=== PATIENT | female | born 1965 | race Caucasian/White ===

== ENCOUNTER → 2019-01-04 | Outpatient (CLI) | payer BC ==
--- NOTE | 2019-01-23 08:16 | MM ---
Reason for exam: clinical finding. Last mammogram was performed 1 year and 10 months ago. History: Patient is postmenopausal. Physical Findings: Nurse did not find any significant physical abnormalities on exam. MG 3D Diag Mammo W/Cad LEANDRO Bilateral CC and MLO view(s) were taken. Prior study comparison: February 25, 2017, mammogram, performed at [place]. No significant new findings when compared with previous films. These results were verbally communicated with the patient on 01/20/19. ASSESSMENT: Benign, BI-RAD 2 RECOMMENDATION: Routine screening mammogram of both breasts in 1 year. Manage patient on a clinical basis.
== END | disposition home or self-care (01) ==
LOC: RADMAMWWP 12:51
PROVIDERS: ATTEND Family Medicine
DX: N64.4 Mastodynia (principal)
CPT/HCPCS: 77062; 77066

== ENCOUNTER 2019-04-28 14:09 | Emergency (ER) | payer BC ==
[2019-04-28 14:34] VITALS: RESP 18
[2019-04-28] MEDS ORDERED: ACETAMINOPHEN TAB 500 MG TAB PO STA ×2 (16:11→16:34)
--- NOTE | 2019-04-28 16:40 | CT ---
EXAMINATION TYPE: CT brain wo con DATE OF EXAM: 04/28/2019 COMPARISON: None HISTORY: Migraine headache with history of prior migraines CT DLP: 1099.[address] of the brain was performed. The ventricles, basal cisterns and sulci overlying the cerebral convexities demonstrate mild enlargem ent. There is no evidence for intracranial hemorrhage or sulcal effacement. There is decreased attenuation about the periventricular white matter and deep white matter of both c erebral hemispheres, compatible with chronic small vessel ischemia. Differential diagnosis does inclu de demyelination. No mass effects are seen.No midline shift. Osseous calvarium is intact. If symptoms persist consider MRI. IMPRESSION: 1. Age related atrophic and chronic small vessel ischemic change without acute intracranial process s een at this time.
[2019-04-28] MEDS ORDERED: KETOROLAC 30 MG/ML 1 ML VIAL IVP STA (16:46)
[2019-04-28] MEDS ORDERED: diphenhydrAMINE 50 MG/ML 1 ML VIAL IVP STA (16:46)
[2019-04-28] MEDS ORDERED: METOCLOPRAMIDE 5 MG/ML 2 ML VIAL IVP STA (16:46)
--- NOTE | 2019-04-28 16:55 | ED ---
General Adult HPI - General Chief complaint: Headache Stated complaint: Migraine Time Seen by Provider: 04/28/19 15:06 Source: patient Mode of arrival: ambulatory Limitations: no limitations - History of Present Illness Initial comments: Patient is a 53-year-old female with history of migraines presenting to the emergency department with chief complaint of a headache. Patient reports she has had an ongoing migraine for about 5 days on and off. Patient reports she takes preventative medication for the migraines. Patient reports currently the migraine is not currently. Patient does report nausea but no vomiting. She does report mild photosensitivity. Patient reports over last few days she's also been dropping objects when she is holding. Patient denies any blurry vision at this time. Patient denies any head trauma. Patient denies any one- sided weakness versus the other or paresthesias. - Related Data Allergies Allergy/AdvReac Type Severity Reaction Status Date / Time banana Allergy Itching Verified 04/28/19 14:38 grass pollen Allergy Itching Verified 04/28/19 14:38 green pepper Allergy Itching Verified 04/28/19 14:38 kiwi Allergy Itching Verified 04/28/19 14:38 melon Allergy Itching Verified 04/28/19 14:38 mold Allergy Itching Verified 04/28/19 14:38 onion Allergy Itching Verified 04/28/19 14:38 orange juice [[place]] Allergy Itching Verified 04/28/19 14:38 pear Allergy Itching Verified 04/28/19 14:38 pollen extracts Allergy Itching Verified 04/28/19 14:38 ragweed pollen Allergy Itching Verified 04/28/19 14:38 Sulfa (Sulfonamide Allergy Rash/Hives Verified 04/28/19 14:38 Antibiotics) Review of Systems ROS Statement: Those systems with pertinent positive or pertinent negative responses have been documented in the HPI. ROS Other: All systems not noted in ROS Statement are negative. Past Medical History Past Medical History: Thyroid Disorder Additional Past Medical History / Comment(s): Migraines, low potassium History of Any Multi-Drug Resistant Organisms: None Reported Past Surgical History: Adenoidectomy, Cholecystectomy, Hysterectomy, Tonsill ectomy Past Psychological History: No Psychological Hx Reported Smoking Status: Never smoker Past Alcohol Use History: Occasional Past Drug Use History: None Reported General Exam Limitations: no limitations General appearance: alert, in no apparent distress, obese Head exam: Present: atraumatic, normocephalic, normal inspection Eye exam: Present: normal appearance, PERRL, EOMI. Absent: scleral icterus, conjunctival injection Pupils: Present: normal accommodation ENT exam: Present: normal exam, normal oropharynx, mucous membranes moist, TM's normal bilaterally, normal external ear exam Neck exam: Present: normal inspection, tenderness (None midline cervical tenderness. Mild paraspinal cervical tenderness along the trapezius bilaterally.), full ROM Respiratory exam: Present: normal lung sounds bilaterally Cardiovascular Exam: Present: regular rate, normal rhythm, normal heart sounds GI/Abdominal exam: Present: soft. Absent: tenderness Extremities exam: Present: normal inspection, full ROM, normal capillary refill, other (+2%the posterior tibialis bilaterally. +2 ulnar and radial pulses bilaterally.) Back exam: Present: normal inspection, full ROM. Absent: CVA tenderness (R), CVA tenderness (L) Neurological exam: Present: alert, oriented X3, CN II-XII intact, normal gait, reflexes normal, other (Patient neurovascularly intact.) Psychiatric exam: Present: normal affect, normal mood Skin exam: Present: warm, intact, normal color Course Vital Signs 04/28/19 04/28/19 14:28 17:48 Temperature 98.7 F 98.0 F Pulse Rate 87 78 Respiratory 18 18 Rate Blood Pressure 111/71 115/74 O2 Sat by Pulse 97 98 Oximetry Medical Decision Making - Medical Decision Making Patient is a 53-year-old female with history of migraines is presenting to the emergency department with a chief complaint of a migraine. The muscular migraine has been going on for about 5 days with a classical symptoms of photosensitivity and nausea. However, considering the patient has been dropping objects over the last several days, CT of the brain is warranted. CT is negative intracranial pathologies. Patient reports she is scheduled to have an MRI. Patient neurovascularly intact. Neuro exam negative. Patient given Tylenol prior to imaging. After the imaging was performed, the patient was given Toradol, Reglan and Benadryl. On reevaluation patient reports improved in her symptoms. Patient did also complain of some cervical tenderness although this appears to be only in the paraspinal regions along the trapezius which appears to be only musculoskeletal in nature. I suspect the patient to have a typical migraine. Patient advised to follow-up with neurology for further management. Strict return parameters were thoroughly discussed with patient was understanding and agreeable. Case discussed physician. Disposition Clinical Impression: Migraine headache without aura Disposition: HOME SELF-CARE Condition: Stable Instructions (If sedation given, give patient instructions): Acute Headache (ED) Additional Instructions: Please follow up with a neurologist. Please return to emergency department if symptoms worsen. Please drink lots of fluids. Is patient prescribed a controlled substance at d/c from ED?: No Referrals: Rebecca Martines DO [Primary Care Provider] - 1-2 days Tunde Christine MD [STAFF PHYSICIAN] - 1-2 days Time of Disposition: 17:27
[2019-04-28 17:48] VITALS: BP 115/74; PULSE 78; TEMP 98
== END 2019-04-28 17:48 | disposition home or self-care (01) ==
LOC: EC 14:09
DX: G43.009 Migraine without aura, not intractable, without status migrainosus (principal); Z88.2 Allergy status to sulfonamides; Z91.018 Allergy to other foods; Z91.048 Other nonmedicinal substance allergy status
CPT/HCPCS: 70450; 99284; 96374; 96375 ×2; J1200; J2765; J1885

== ENCOUNTER → 2019-05-12 | Outpatient (CLI) | payer BC ==
--- NOTE | 2019-05-12 09:47 | MR ---
EXAMINATION TYPE: MR cervical spine wo con DATE OF EXAM: 05/12/2019 COMPARISON: None HISTORY: Radiculopathy, cervical region, neck pain, BARRERA TECHNIQUE: Multiplanar, multisequence images of the cervical spine were acquired. C2-C3: There is left-sided facet arthropathy with mild left foraminal encroachment. C3-C4: Degenerative disc disease with uncovertebral joint hypertrophy on the right right-sided facet arthropathy result in moderate right foraminal encroachment. There is a right paracentral lateral dis c protrusion. C4-C5: Degenerative disc disease with posterior spondylosis. Bilateral facet arthropathy greater on t he left with uncovertebral joint hypertrophy. Mild left foraminal encroachment. C5-C6: Posterior spondylosis with mild impression of thecal sac but no canal stenosis. Bilateral unco vertebral joint hypertrophy greater on the right with mild right-sided foraminal encroachment. C6-C7: Degenerative disc disease with broad-based central disc bulging capped by spur. Uncovertebral joint hypertrophy is noted greater on the left with mild left foraminal encroachment. C7-T1: No evidence for degenerative disc disease. No disc bulge/herniation or protrusion. No Canal stenosis. Foramina are patent bilaterally. Cervical segments are intact. There is normal alignment. Cervical spinal cord is of normal signal. Craniovertebral junction relationships are within normal limits. Subcentimeter left thyroid nodule incidentally. The upper thoracic spine there is a sagittal disc bulge approximate level of T2-T3. IMPRESSION: 1. Multilevel moderate degenerative disc disease with multilevel facet arthropathy. Findings most mar ked at C5-6 and C6-C7. Findings result in mild to moderate foraminal encroachment as discussed above with no discrete herniation or canal stenosis. 2. Mild broad-based central disc bulging C6-C7 with hypertrophic changes resulting in mild left elijah inal encroachment. 3. Right paracentral and lateral disc protrusion C3-C4 with moderate right-sided foraminal encroachme nt.
== END | disposition home or self-care (01) ==
LOC: RADMRIMAIN 08:49
PROVIDERS: ATTEND Family Medicine
DX: M50.21 Other cervical disc displacement, high cervical region (principal); M50.823 Other cervical disc disorders at C6-C7 level; M50.322 Other cervical disc degeneration at C5-C6 level; M46.92 Unspecified inflammatory spondylopathy, cervical region
CPT/HCPCS: 72141

== ENCOUNTER 2021-01-23 01:42 | Observation (INO) | payer BC ==
--- NOTE | 2021-01-23 02:10 | ED ---
Chest Pain HPI - General Chief Complaint: Chest Pain Stated Complaint: Chest pain Time Seen by Provider: 01/23/21 02:03 Source: patient, family, RN notes reviewed, old records reviewed Mode of arrival: wheelchair Limitations: no limitations - History of Present Illness Initial Comments: This is a 55-year-old female to the ER for evaluation today. Patient presents today with anterior chest wall pain to her back across her chest. No history of heart disease, no history of high blood pressure but patient does have diabetes. No recent fevers cough or congestion. Patient does have recent travel history she's been traveling in a car extensively recently. She did have some left calf pain as well as morning. Patient is currently complaining of persistent chest pain here in the ER. MD Complaint: chest pain -: hour(s) Onset: during rest Pain Location: substernal, left chest, right chest Pain Radiation: back Severity: moderate Severity scale (1-10): 4 Quality: tightness Consistency: constant Improves With: nothing Worsens With: nothing Other Symptoms: cough Treatments Prior to Arrival: none - Related Data Allergies Allergy/AdvReac Type Severity Reaction Status Date / Time banana Allergy Itching Verified 01/23/21 01:50 grass pollen Allergy Itching Verified 01/23/21 01:50 green pepper Allergy Itching Verified 01/23/21 01:50 kiwi Allergy Itching Verified 01/23/21 01:50 melon Allergy Itching Verified 01/23/21 01:50 mold Allergy Itching Verified 01/23/21 01:50 onion Allergy Itching Verified 01/23/21 01:50 orange juice [[place]] Allergy Itching Verified 01/23/21 01:50 pear Allergy Itching Verified 01/23/21 01:50 pollen extracts Allergy Itching Verified 01/23/21 01:50 ragweed pollen Allergy Itching Verified 01/23/21 01:50 Sulfa (Sulfonamide Allergy Rash/Hives Verified 01/23/21 01:50 Antibiotics) Review of Systems ROS Statement: Those systems with pertinent positive or pertinent negative responses have been documented in the HPI. ROS Other: All systems not noted in ROS Statement are negative. EKG Findings - EKG Comments: EKG Findings:: EKG shows sinus rhythm 79 [place] 134 QRS 90 QTc 421 Past Medical History Past Medical History: Diabetes Mellitus, Thyroid Disorder Additional Past Medical History / Comment(s): Migraines, low potassium History of Any Multi-Drug Resistant Organisms: None Reported Past Surgical History: Adenoidectomy, Cholecystectomy, Hysterectomy, Tonsillectomy Past Psychological History: No Psychological Hx Reported Smoking Status: Current every day smoker Past Alcohol Use History: Occasional Past Drug Use History: None Reported General Exam Limitations: no limitations General appearance: alert, in no apparent distress, anxious Head exam: Present: atraumatic, normocephalic, normal inspection Eye exam: Present: normal appearance, PERRL, EOMI. Absent: scleral icterus, conjunctival injection, periorbital swelling ENT exam: Present: normal exam, mucous membranes moist Neck exam: Present: normal inspection. Absent: tenderness, meningismus, lymphadenopathy Respiratory exam: Present: normal lung sounds bilaterally. Absent: respiratory distress, wheezes, rales, rhonchi, stridor Cardiovascular Exam: Present: regular rate, normal rhythm, normal heart sounds. Absent: systolic murmur, diastolic murmur, rubs, gallop, clicks GI/Abdominal exam: Present: soft, normal bowel sounds. Absent: distended, tenderness, guarding, rebound, rigid Extremities exam: Present: normal inspection, full ROM, normal capillary refill. Absent: tenderness, pedal edema, joint swelling, calf tenderness Back exam: Present: normal inspection Neurological exam: Present: alert, oriented X3, CN II-XII intact Psychiatric exam: Present: normal affect, normal mood Skin exam: Present: warm, dry, intact, normal color. Absent: rash Course Vital Signs 01/23/21 01:47 Temperature 98.8 F Pulse Rate 85 Respiratory 18 Rate Blood Pressure 119/82 O2 Sat by Pulse 97 Oximetry - Reevaluation(s) Reevaluation #1: 01/23/21 04:39 Medical record is reviewed Reevaluation #2: 01/23/21 04:39 Patient has persistent chest pain here in the ER Reevaluation #3: 01/23/21 04:39 Patient informed results and questions answered Reevaluation #4: 01/23/21 04:[address] chest is negative for PE - Consultations Consultation #1: Spoke with Dr. Martines will admit this patient Chest Pain MDM - MDM 89 female presenting with chest pain. History of diabetes, patient be admitted for cardiac observation Disposition Clinical Impression: Chest pain Disposition: ADMITTED IP TO THIS HOSP Condition: Undetermined Instructions (If sedation given, give patient instructions): Chest Pain (ED) Is patient prescribed a controlled substance at d/c from ED?: No Referrals: Rebecca Martines DO [Primary Care Provider] - 1-2 days
[2021-01-23] MEDS ORDERED: MORPHINE SULFATE 4 MG/ML SYRINGE IVP PRN (02:13)
[2021-01-23] MEDS ORDERED: MORPHINE SULFATE 4 MG/ML SYRINGE IVP STA (02:13)
[2021-01-23 02:32] LABS: Basophils % (A) 0 %; Eosinophils % (A) 0 %; HCT 40.4 % (34.0-46.0); HGB 13.8 gm/dL (11.4-16.0); Lymphocytes # (A) 1.7 k/uL (1.0-4.8); Lymphocytes % (A) 28 %; MCH 30.2 pg (25.0-35.0); MCHC 34.1 g/dL (31.0-37.0); MCV 88.6 fL (80.0-100.0); Mean Platelet Volume 7.9; Monocytes # (A) 0.4 k/uL (0-1.0); Monocytes % (A) 6 %; Neutrophils % (A) 64 %; Platelet Count 172 k/uL (150-450); RBC 4.56 m/uL (3.80-5.40); RDW 13.4 % (11.5-15.5); WBC 6.2 k/uL (3.8-10.6)
[2021-01-23 02:41] LABS: INR 0.9 (<1.2); Partial Thromboplastin Time 24.4 sec (22.0-30.0); Prothrombin Time 9.9 sec (9.0-12.0)
[2021-01-23 02:48] LABS: Calcium 9.8 mg/dL (8.4-10.2)
[2021-01-23 02:59] LABS: Albumin 4.6 g/dL (3.5-5.0); Potassium 3.9 mmol/L (3.5-5.1); Total Bilirubin 0.6 mg/dL (0.2-1.3); Total Protein 7.3 g/dL (6.3-8.2)
--- NOTE | 2021-01-23 03:33 | CT ---
EXAMINATION TYPE: CT angio chest DATE OF EXAM: 01/23/2021 COMPARISON: None HISTORY: Chest pain CT DLP: 525.4 mGycm Automated exposure control for dose reduction was used. CONTRAST: Performed with IV Contrast, patient injected with 80 mL of Isovue 370. Images obtained from the thoracic inlet to the diaphragm with IV contrast. There are 3-D post process ed images. The lungs are clear of infiltrate. There is no pleural effusion. There is no pneumothorax. There is no mediastinal adenopathy. There are no hilar masses. Heart size is normal. Thoracic aorta is intact. There is no aneurysm or dissection. The ascending aorta measures 3.5 cm. There is normal contrast opacification of the pulmonary arteries. There are no filling defects. Thoracic spine is intact. There is no compression fracture. Sternum is intact. There is 2.5 cm cortic al cyst upper pole left kidney. IMPRESSION: Negative exam. No evidence of pulmonary embolism. No suspicious pulmonary mass.
[2021-01-23] MEDS ORDERED: MORPHINE SULFATE 4 MG/ML SYRINGE IV STA (04:35)
[2021-01-23] MEDS ORDERED: NITROGLYCERIN SL TABS 0.4 MG TAB SUBLINGUAL PRN (04:35)
[2021-01-23] MEDS ORDERED: ASPIRIN 81 MG PO STA (04:35)
[2021-01-23] MEDS ORDERED: SODIUM CHLORIDE 0.9% 1,000 ML IV SCH (04:45)
[2021-01-23 05:05] VITALS: RESP 16
[2021-01-23 07:37] LABS: Glucose,Whole Blood 125 mg/dL (75-99)
[2021-01-23] MEDS ORDERED: DOBUTamine DRIP for NUC MED 500 MG in DEXTROSE/WATER 1 250ML.BAG IV PRN (08:30)
--- NOTE | 2021-01-23 09:16 | P.CRDCN ---
History of Present Illness History of present illness: HISTORY OF PRESENTING ILLNESS This is a pleasant 55-year-old female past medical history significant for diabetes mellitus, hypothyroidism, chronic migraines and chronic nicotine. 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 We have been asked to see in consultation for chest pain. She states yesterday morning she woke up with a migraine headache. She had to lay down and slept most of the day. She woke up around 3pm and noticed a tight pressure in her chest in the upper mid sternal region. The pain was constant and wrapped around her torso. It was associated with shortness of breath and nausea. The pain persisted all day and into the night. There was no specific exacerbating factor. Nothing made the pain better or worse. It is still ongoing currently. No radiation down the arm or into the neck/jaw. DIAGNOSTICS EKG reveals sinus mechanism [address] or T wave abnormalities noted. CTA negative for pulmonary embolism, lungs are clear with no evidence of aortic aneurysm or dissection. Laboratory reviewed, CBC unremarkable, d-dimer 0.26, sodium 137, potassium 3.9, creatinine 0.85, magnesium 2.0, cardiac enzymes negative 2, NT proBNP 39. Current cardiac medications include hydrochlorothiazide 25 mg daily. Although not listed on her medication list the patient states she does take a statin 2 days per week. REVIEW OF SYSTEMS At the time of my exam: CONSTITUTIONAL: Denies fever or chills. CARDIOVASCULAR: Denies chest pain, shortness of breath, orthopnea, PND or palpitations. RESPIRATORY: Denies cough. GASTROINTESTINAL: Denies abdominal pain, diarrhea, constipation, nausea or vomit ing. MUSCULOSKELETAL: Denies myalgias. NEUROLOGIC: Denies numbness, tingling, headacbe or weakness. ENDOCRINE: Denies fatigue, weight change, polydipsia or polyurina. GENITOURINARY: Denies burning, hematuria or urgency with micturation. HEMATOLOGIC: Denies history of anemia or bleeding. PHYSICAL EXAMINATION Blood pressure 116/76 heart rate 71 afebrile and maintaining oxygen saturation on room air. CONSTITUTIONAL: No apparent distress. HEENT: Head is normocephalic. Pupils are equal, round. Sclerae anicteric. Mucous membranes of the mouth are moist. No JVD. No carotid bruit. CHEST EXAMINATION: Lungs are clear to auscultation. No chest wall tenderness is noted on palpation or with deep breathing. HEART EXAMINATION: Regular rate and rhythm. S1, S2 heard. No murmurs, gallops or rub. ABDOMEN: Soft, nontender. Positive bowel sounds. EXTREMITIES: 2+ peripheral pulses, no lower extremity edema and no calf tenderness. NEUROLOGIC EXAMINATION: Patient is awake, alert and oriented x3. ASSESSMENT Chest pain Diabetes mellitus Chronic migraines Chronic nicotine dependence Obesity, BMI 37 PLAN An acute coronary event has been ruled out. Pain is atypical for angina with no evidence of EKG abnormalities despite having ongoing constant chest pain since 3 PM yesterday. Obtain 2-D echocardiogram and Doppler study to assess cardiac structure and function. Perform dobutamine stress echocardiogram to assess for stress-induced cardiac ischemia. Discussed with her the importance of statin therapy given her history of diabetes mellitus. Thank you kindly for this consultation. Nurse Practitioner note has been reviewed, I agree with a documented findings and plan of care. Patient was seen and examined. Past Medical History Past Medical History: Diabetes Mellitus, Thyroid Disorder Additional Past Medical History / Comment(s): Migraines, low potassium History of Any Multi-Drug Resistant Organisms: None Reported Past Surgical History: Adenoidectomy, Cholecystectomy, Hysterectomy, Tonsillectomy Past Psychological History: No Psychological Hx Reported Smoking Status: Current every day smoker Past Alcohol Use History: Occasional Past Drug Use History: None Reported Medications and Allergies Home Medications Medication Instructions Recorded Confirmed Type Amitriptyline HCl 25 mg PO HS 01/23/21 01/23/21 History Azelastine HCl [Astepro] 1 - 2 spray EA NOSTRIL BID PRN 01/23/21 01/23/21 History Fluticasone Propionate [Flonase 1 - 2 spray EA NOSTRIL BID PRN 01/23/21 01/23/21 History Allergy Relief] Galcanezumab-Gnlm [Emgality] 120 mg SQ QMONTHLY 01/23/21 01/23/21 History Levothyroxine Sodium [Synthroid] 112 mcg PO DAILY 01/23/21 01/23/21 History Omeprazole [PriLOSEC] 20 mg PO DAILY 01/23/21 01/23/21 History Potassium Chloride [Klor-Con 10] 20 meq PO BID 01/23/21 01/23/21 History QUEtiapine [SEROquel] 25 mg PO HS 01/23/21 01/23/21 History Rizatriptan Benzoate [Rizatriptan] 10 mg PO BID PRN 01/23/21 01/23/21 History Ubrogepant [Ubrelvy] 50 mg PO Q2H PRN 01/23/21 01/23/21 History Venlafaxine HCl [Effexor] 75 mg PO BID 01/23/21 01/23/21 History hydroCHLOROthiazide [Hydrodiuril] 25 mg PO DAILY 01/23/21 01/23/21 History metFORMIN HCL [Glucophage] 500 mg PO AC-BID 01/23/21 01/23/21 History Allergies Allergy/AdvReac Type Severity Reaction Status Date / Time banana Allergy Itching Verified 01/23/21 06:30 grass pollen Allergy Itching Verified 01/23/21 06:30 green pepper Allergy Itching Verified 01/23/21 06:30 kiwi Allergy Itching Verified 01/23/21 06:30 melon Allergy Itching Verified 01/23/21 06:30 mold Allergy Itching Verified 01/23/21 06:30 onion Allergy Itching Verified 01/23/21 06:30 orange juice [[place]] Allergy Itching Verified 01/23/21 06:30 pear Allergy Itching Verified 01/23/21 06:30 pollen extracts Allergy Itching Verified 01/23/21 06:30 ragweed pollen Allergy Itching Verified 01/23/21 06:30 Sulfa (Sulfonamide Allergy Rash/Hives Verified 01/23/21 06:30 Antibiotics) Physical Exam Vitals: Vital Signs Temp Pulse Resp BP Pulse Ox 01/23/21 05:04 66 16 97/60 97 01/23/21 01:47 98.8 F 85 18 119/82 97 Intake and Output 01/22/21 01/23/21 01/23/21 22:59 06:59 14:59 Other: Weight 104.78 kg Results 01/23/21 02:11 01/23/21 02:11 Cardiac Enzymes 01/23/21 01/23/21 01/23/21 Range/Units 02:11 02:11 05:43 AST 43 H (14-36) U/L Troponin I <0.012 <0.012 (0.000-0.034) ng/mL Coagulation 01/23/21 Range/Units 02:11 PT 9.9 (9.0-12.0) sec APTT 24.4 (22.0-30.0) sec CBC 01/23/21 Range/Units 02:11 WBC 6.2 (3.8-10.6) k/uL RBC 4.56 (3.80-5.40) m/uL Hgb 13.8 (11.4-16.0) gm/dL Hct 40.4 (34.0-46.0) % Plt Count 172 (150-450) k/uL Comprehensive Metabolic Panel 01/23/21 Range/Units 02:11 Sodium 137 (137-145) mmol/L Potassium 3.9 (3.5-5.1) mmol/L Chloride 99 (98-107) mmol/L Carbon Dioxide 30 (22-30) mmol/L BUN 26 H (7-17) mg/dL Creatinine 0.85 (0.52-1.04) mg/dL Glucose 112 H (74-99) mg/dL Calcium 9.8 (8.4-10.2) mg/dL AST 43 H (14-36) U/L ALT 29 (4-34) U/L Alkaline Phosphatase 93 (38-126) U/L Total Protein 7.3 (6.3-8.2) g/dL Albumin 4.6 (3.5-5.0) g/dL Current Medications Generic Name Dose Route Start Last Admin Trade Name Freq PRN Reason Stop Dose Admin Aspirin 325 mg 01/24/21 09:00 Aspirin 325 Mg Tab PO DAILY RAMONA Sodium Chloride 1,000 mls @ 20 mls/hr 01/23/21 04:45 01/23/21 05:01 Saline 0.9% IV 20 mls/hr .Q24H RAMONA Administration Morphine Sulfate 4 mg 01/23/21 02:13 Morphine Sulfate 4 Mg/Ml Syringe IVP Q4HR PRN Pain Nitroglycerin 0.4 mg 01/23/21 04:35 Nitroglycerin Sl Tabs 0.4 Mg Tab SUBLINGUAL Q5M PRN Chest Pain Intake and Output 01/22/21 01/23/21 01/23/21 22:59 06:59 14:59 Other: Weight 104.78 kg 01/23/21 02:11 01/23/21 02:11
[2021-01-23] MEDS ORDERED: ATROPINE SULFATE 0.1 MG/ML 10ML SYRINGE ONE (10:53)
--- NOTE | 2021-01-23 11:40 | ECHOF ---
Referral Reason: MEASUREMENTS -------- HEIGHT: 167.6 cm WEIGHT: 104.8 kg BP: 97/60 RVIDd: 3.0 cm (< 3.3) IVSd: 1.1 cm (0.6 - 1.1) LVIDd: 3.9 cm (3.9 - 5.3) LVPWd: 0.9 cm (0.6 - 1.1) IVSs: 1.3 cm LVIDs: 2.9 cm LVPWs: 1.5 cm LA Diam: 3.2 cm (2.7 - 3.8) LAESV Index (A-L): 14.24 ml/m Ao Diam: 3.3 cm (2.0 - 3.7) AV Cusp: 2.0 cm (1.5 - 2.6) MV EXCURSION: 15.618 mm (> 18.000) MV EF SLOPE: 78 mm/s (70 - 150) EPSS: 0.3 cm MV E Brent: 0.88 m/s MV DecT: 286 ms MV A Brent: 0.96 m/s MV E/A Ratio: 0.92 RAP: 5.00 mmHg RVSP: 25.57 mmHg FINDINGS -------- Sinus rhythm. This was a technically adequate study. The left ventricular size is normal. Left ventricular wall thickness is normal. Overall left vent ricular systolic function is normal with, an EF between 60 - 65 %. The right ventricle is normal in size. Normal LA size by volume 22+/-6 ml/m2. The right atrium is normal in size. Aneurysmal Interatrial septum. The aortic valve is trileaflet, and appears structurally normal. No aortic stenosis or regurgitation. The mitral valve is normal. Mild tricuspid regurgitation present. Right ventricular systolic pressure is normal at < 35 mmHg. There is no pulmonic regurgitation present. The aortic root is dilated measuring 3.3cm. Normal inferior vena cava with normal inspiratory collapse consistent with estimated right atrial pre ssure of 5 mmHg. There is no pericardial effusion. CONCLUSIONS -------- 1. The left ventricular size is normal. 2. Left ventricular wall thickness is normal. 3. Overall left ventricular systolic function is normal with, an EF between 60 - 65 %. 4. Aneurysmal Interatrial septum. 5. The aortic valve is trileaflet, and appears structurally normal. No aortic stenosis or regurgitati on. 6. Mild tricuspid regurgitation present. 7. There is no pericardial effusion. BLOCK OPERATOR: Annamaria Sanchez RDCS
[2021-01-23 11:49] LABS: Glucose,Whole Blood 108 mg/dL (75-99)
[2021-01-23 13:10] LABS: Chol/HDL Ratio 2.62
--- NOTE | 2021-01-23 14:27 | ECHOS ---
STRESS ECHOCARDIOGRAM LUMASON: Vial INDICATIONS: Chest pain. MEDICATIONS: BASELINE HEART RATE: 66 BASELINE BLOOD PRESSURE: 154/67 MAXIMUM HEART RATE: 143 MAXIMUM BLOOD PRESSURE: 216/115 85% MPHR: 139 100% MPHR: 163 METS: na MAXIMUM STAGE REACHED: na TOTAL EXERCISE TIME: 14:02 CLINICAL INFORMATION: Baseline EKG shows sinus rhythm, normal axis, normal intervals. Patient was given intravenous dobutamine over a period of 14 minutes as per protocol. She also received 0.5 mg of atropine achieving 85% of predicted maximal heart rate. The patient did not have chest pain or diagnostic ST-segment depression. Baseline echo shows normal left ventricular size, wall motion and systolic function. Post dobutamine infusion there is normal hyperdynamic response of all segments of myocardium noted. CONCLUSIONS: 1. Negative stress test by EKG criteria. 2. Negative dobutamine stress echo. OLIVE / LIYAHN: [id number] /
[2021-01-23 15:10] VITALS: BP 105/71; PULSE 79; TEMP 97.7
[2021-01-23 17:39] LABS: Glucose,Whole Blood 107 mg/dL (75-99)
[2021-01-23] MEDS ORDERED: QUEtiapine 25 MG TAB PO SCH (21:00)
[2021-01-23] MEDS ORDERED: AMITRIPTYLINE HCL 25 MG TAB PO SCH (21:00)
[2021-01-23] MEDS ORDERED: VENLAFAXINE HCL 75 MG TAB PO SCH (21:00)
[2021-01-23] MEDS ORDERED: POTASSIUM CHLORIDE ER 20 MEQ TAB.ER PO SCH (21:00)
[2021-01-24] MEDS ORDERED: LEVOTHYROXINE 112 MCG TAB PO SCH (06:30)
[2021-01-24] MEDS ORDERED: PANTOPRAZOLE 40 MG TABLET PO SCH (07:30)
[2021-01-24] MEDS ORDERED: ASPIRIN 325 MG TAB PO SCH (09:00)
[2021-01-24] MEDS ORDERED: hydroCHLOROthiazide 25 MG TAB PO SCH (09:00)
== END 2021-01-23 19:09 | disposition home or self-care (01) ==
LOC: EC 01:42 → 6NMEDSUR 04:35
PROVIDERS: ADMIT Family Medicine; ATTEND Family Medicine
DX: R07.89 Other chest pain (principal); M79.662 Pain in left lower leg; R05 Cough; E11.9 Type 2 diabetes mellitus without complications; G43.909 Migraine, unspecified, not intractable, without status migrainosus; F17.200 Nicotine dependence, unspecified, uncomplicated; E03.9 Hypothyroidism, unspecified; R06.02 Shortness of breath; R11.0 Nausea; E66.9 Obesity, unspecified; Z68.37 Body mass index [BMI] 37.0-37.9, adult; Z79.890 Hormone replacement therapy; Z79.84 Long term (current) use of oral hypoglycemic drugs; Z79.899 Other long term (current) drug therapy; Z88.2 Allergy status to sulfonamides; Z91.018 Allergy to other foods; Z91.048 Other nonmedicinal substance allergy status; Z90.49 Acquired absence of other specified parts of digestive tract; Z90.710 Acquired absence of both cervix and uterus; Z98.890 Other specified postprocedural states
CPT/HCPCS: 99285; 96376 ×2; 96374; 36415; 93005; 93306; 93351; 85379; 83880; 80061; 80053; 82550; 83690; 83735; 84484; 85025; 85610; 85730; 71275; G0378; J1250; J2270; J0461

== ENCOUNTER 2021-03-12 07:37 | Day surgery (SDC) | payer BC ==
[2021-03-07 15:20] VITALS: BMI 35.2
[~2021-03-12 07:37] MED LIST: LACTATED RINGERS 1,000 ML IV SCH; LIDOCAINE 1% (10MG/ML) FOR IV START INTRADERMA PRN
[2021-03-12 08:05] VITALS: RESP 16; TEMP 97.7
[2021-03-12] MEDS ORDERED: LIDOCAINE 1% (10MG/ML) FOR IV START INTRADERMA ONE (08:11)
[2021-03-12 08:13] LABS: Glucose,Whole Blood 107 mg/dL (75-99)
[2021-03-12] MEDS ORDERED: LIDOCAINE 1% INJ 10MG/ML (20 ML MDV) ONE (08:29)
[2021-03-12] MEDS ORDERED: PROPOFOL 10 MG/ML 20 ML VIAL IV ONE (08:29)
--- NOTE | 2021-03-12 08:39 | P.PCN ---
Date of Procedure: 03/12/21 Procedure(s) Performed: BRIEF HISTORY: Patient is a 55-year-old, pleasant, white female scheduled for an upper endoscopy as a part of evaluation of long-standing history of GERD and atypical chest pain for the last 1 month duration.. PROCEDURE PERFORMED: Esophagogastroduodenoscopy with biopsy. PREOPERATIVE DIAGNOSIS: Long-standing history of GERD and atypical chest pain. IV sedation per anesthesia. PROCEDURE: After informed consent was obtained, the patient was brought into the endoscopy unit. IV sedation was administered by Anesthesia under continuous monitoring. Initially the Olympus GIF-140 video endoscope was inserted into the mouth. Esophagus intubated without any difficulty. It was gradually advanced into the stomach and duodenum and carefully examined. The bulb and the second part of the duodenum appeared normal. The scope at this time was withdrawn to the stomach, adequately insufflated with air, and upon careful examination, mucosa of the antrum appeared normal. In the proximal antrum along the greater curvature of the stomach there was a 1 cm clean-based antral ulcer with surrounding mucosal erythema friability and multiple biopsies were done from the margin of the ulcer. Cause of the, body, cardia and the fundus appeared normal. The scope was then withdrawn into the esophagus. The GE junction was located at 39 cm from the incisors. Small sliding type hiatal hernia noted. The esophagus appeared normal. There were no erosions or ulcerations seen and the patient t olerated the procedure well. IMPRESSION: 1. 1 cm clean-based antral ulcer with surrounding friability and erythema of the gastric mucosa.. 2. Small hiatal hernia.. RECOMMENDATIONS: The findings of this examination were discussed with the patient as well as a family. She was advised to increase omeprazole to 20 mg twice daily, and follow with the biopsy results. Avoid NSAIDs. She'll be seen in office in 3 months. Plan a repeat upper endoscopy in 3 months..
[2021-03-12 09:07] VITALS: BP 101/68; PULSE 84
== END 2021-03-12 09:56 | disposition home or self-care (01) ==
LOC: ORWHC2ENDO 07:37
PROVIDERS: ATTEND Internal Medicine Gastroenterology
DX: K29.60 Other gastritis without bleeding (principal); K21.9 Gastro-esophageal reflux disease without esophagitis; K44.9 Diaphragmatic hernia without obstruction or gangrene; K25.9 Gastric ulcer, unspecified as acute or chronic, without hemorrhage or perforation; R13.10 Dysphagia, unspecified; E11.9 Type 2 diabetes mellitus without complications; G43.909 Migraine, unspecified, not intractable, without status migrainosus; E07.9 Disorder of thyroid, unspecified; Z79.84 Long term (current) use of oral hypoglycemic drugs; Z79.890 Hormone replacement therapy; Z79.899 Other long term (current) drug therapy; Z90.710 Acquired absence of both cervix and uterus; Q21.1 Atrial septal defect
CPT/HCPCS: 43239; 88305; J2001; J2704

== ENCOUNTER 2021-05-15 06:18 | Day surgery (SDC) | payer BC ==
[2021-05-14 12:35] VITALS: BMI 34.7
[2021-05-15 06:59] VITALS: TEMP 97.2
[2021-05-15 07:03] LABS: Glucose,Whole Blood 104 mg/dL (75-99)
[2021-05-15] MEDS ORDERED: PROPOFOL 10 MG/ML 20 ML VIAL IV ONE (07:06)
[2021-05-15 07:56] VITALS: BP 102/74; PULSE 66; RESP 14
--- NOTE | 2021-05-15 08:40 | PCN ---
PROCEDURE NOTE DATE OF PROCEDURE: 05/15/2021. PREOP DIAGNOSIS: Multiple myeloma. POSTOP DIAGNOSIS: Multiple myeloma. ANESTHESIA: Local with IV systemic sedation. DETAILS: Utilizing sterile technique, the skin overlying the right iliac crest was prepared with Betadine and alcohol. After adequate sterile draping, systemic sedation and 1% local anesthesia with lidocaine size 11 4 inch Jamshidi needle was utilized to access the periosteum with ease. A total of 15 mL of aspirate and 6 mm bone core biopsies were obtained. The patient tolerated the procedure very well. There was no immediate procedure related complications. TOTAL BLOOD LOSS: Less than 1 mL. Results pending. MMODL / IJN: [id number] /
[2021-05-15 11:37] LABS: Basophils % (A) 0 %; Eosinophils % (A) 0 %; HCT 40.5 % (34.0-46.0); HGB 13.8 gm/dL (11.4-16.0); Lymphocytes # (A) 1.9 k/uL (1.0-4.8); Lymphocytes % (A) 31 %; MCH 30.5 pg (25.0-35.0); MCV 89.8 fL (80.0-100.0); Monocytes # (A) 0.4 k/uL (0-1.0); Monocytes % (A) 7 %; Neutrophils # (A) 3.6 k/uL (1.3-7.7); Neutrophils % (A) 60 %; Platelet Count 213 k/uL (150-450); RBC 4.51 m/uL (3.80-5.40); RDW 13.5 % (11.5-15.5); WBC 5.9 k/uL (3.8-10.6)
[2021-05-15 11:40] LABS: Reticulocyte % 1.2 % (0.5-2.0)
== END 2021-05-15 08:22 | disposition home or self-care (01) ==
LOC: OR 06:18
PROVIDERS: ATTEND Internal Medicine Hematology & Oncology
DX: C90.00 Multiple myeloma not having achieved remission (principal)
CPT/HCPCS: 38222; 85025; 85045; J2704

== ENCOUNTER → 2023-01-15 | Outpatient (CLI) | payer BC ==
[2023-01-15 15:44] LABS: Homocysteine 16.2 UMOL/L (4.00-14.00)
== END | disposition home or self-care (01) ==
LOC: LABWHC1 11:13
PROVIDERS: ATTEND Family Medicine
DX: Z11.9 Encounter for screening for infectious and parasitic diseases, unspecified (principal); Z13.6 Encounter for screening for cardiovascular disorders; M25.50 Pain in unspecified joint; R53.83 Other fatigue; R10.84 Generalized abdominal pain; M85.80 Other specified disorders of bone density and structure, unspecified site
CPT/HCPCS: 36415; 82306; 82533; 82626; 82784; 83090; 86003; 86038; 86663; 86664; 86665

== ENCOUNTER → 2023-01-15 | Outpatient (CLI) | payer BC ==
--- NOTE | 2023-01-18 08:09 | MM ---
Reason for Exam: Screening (asymptomatic). Last mammogram was performed 4 year(s) and 0 month(s) ago. Patient History: Menarche at age 12. First Full-Term at age 17. Left ovary removed at age 48. Right ovary removed at age 48. Hysterectomy at age 32. Postmenopausal. Risk Values: Melva 5 year model risk: 0.9%. NCI Lifetime model risk: 5.0%. Prior Study Comparison: 08/19/2005 Bilateral Screening Mammogram, [facility]. 02/25/2017 Screening Mammogram, [place]. 01/04/2019 Bilateral Diagnostic Mammogram, [facility]. Tissue Density: There are scattered fibroglandular densities. Findings: Analyzed By CAD. There is no suspicious group of microcalcifications or new suspicious mass in either breast. Overall Assessment: Benign, BI-RAD 2 Management: Screening Mammogram of both breasts in 1 year. . Patient should continue monthly self-breast exams. A clinical breast exam by your physician is recommended on an annual basis. This exam should not preclude additional follow-up of suspicious palpable abnormalities. Note on Melva scores and lifetime risk: 1. A Melva score greater than 3% is considered moderate risk. If this is the case, consider specialist referral to assess eligibility for a risk reducing agent. 2. If overall lifetime risk for the development of breast cancer is 20% or higher, the patient may qualify for future screening with alternating mammogram and breast MRI. Electronically signed and approved by: Son Waite M.D. Radiologis
== END | disposition home or self-care (01) ==
LOC: RADMAMWWP 11:10
PROVIDERS: ATTEND Family Medicine
DX: Z12.31 Encounter for screening mammogram for malignant neoplasm of breast (principal); Z78.0 Asymptomatic menopausal state
CPT/HCPCS: 77063; 77067

== ENCOUNTER → 2023-06-23 | Outpatient (CLI) | payer BC ==
--- NOTE | 2023-06-28 21:34 | CT ---
EXAMINATION TYPE: CT abdomen pelvis w con DATE OF EXAM: 06/23/2023 COMPARISON: NONE HISTORY: 57-year-old female R109 midline and lower abdominal pain x 6 months. TECHNIQUE: Contiguous axial scanning of the abdomen and pelvis following administration of 100 mL Iso ewa 300 IV contrast. Delayed images through the kidneys and coronal/sagittal reconstructions perform ed. CT DLP: 739.7 mGycm Automated exposure control for dose reduction was used. FINDINGS: Heart normal size without pericardial effusion. Lung bases clear without pleural effusion. Prominent breathing motion artifact at the thoracoabdominal junction. Liver appears enlarged measuring nearly 20 cm. There may be underlying fatty infiltration. Portal magaly ous system is patent. Some possible nodular soft tissue density distal bile duct, axial image 34 and coronal images 44 and 45. Bile duct caliber 4 mm. Adrenal glands, right kidney, seen, and pancreas show no gross abnormality. Benign cortical cyst left kidney measuring 2.7 cm. No dilated small bowel, free fluid, or free air. No mesenteric or retroperitoneal adenopathy. Tiny fatty umbilical hernia. Normal appendix. Moderate stool burden. No pericolonic inflammatory change. Bladder is urine distended. Uterus surgically absent. Numerous pelvic phleboliths. Neither ovary josh rly identified. No abnormal fluid collection in the pelvis or pelvic lymphadenopathy. Bones: Scattered mild degenerative disc disease. Mild facet arthropathy throughout. IMPRESSION: 1. HEPATOMEGALY NEARLY MEASURING 20 CM. ASSESSMENT LIMITED DUE TO PATIENT BREATHING DURING THE SCAN. THERE MAY BE SOME UNDERLYING FATTY INFILTRATION OF THE LIVER. 2. CORRELATE WITH ALKALINE PHOSPHATASE AND BILIRUBIN LEVELS THERE IS A POSSIBLE NODULAR DENSITY AT THE DISTAL BILE DUCT, CORONAL IMAGES 44 AND 45. NO BILIARY DUCTAL DILATATION AT THIS TIME. ERCP OR M SIGNAL WORKER CLINICALLY INDICATED. 3. MODERATE STOOL BURDEN.
== END | disposition home or self-care (01) ==
LOC: RADCTMAIN 15:51
PROVIDERS: ATTEND Internal Medicine Hematology & Oncology
DX: R16.0 Hepatomegaly, not elsewhere classified (principal); D47.2 Monoclonal gammopathy; E87.6 Hypokalemia; G43.909 Migraine, unspecified, not intractable, without status migrainosus; Z71.3 Dietary counseling and surveillance
CPT/HCPCS: 74177; Q9967

== ENCOUNTER → 2023-08-06 | Outpatient (CLI) | payer BC | END | disposition home or self-care (01) | LOC: LABWHC1 13:52 | PROVIDERS: ATTEND Family Medicine | DX: Z53.9 Procedure and treatment not carried out, unspecified reason (principal) ==

== ENCOUNTER 2023-09-23 15:17 | Observation (INO) | payer BC ==
[2023-09-23] MEDS: SODIUM CHLORIDE 0.9% 1,000 ML IV STA (16:24)
[2023-09-23] MEDS: diphenhydrAMINE 50 MG/ML 1 ML VIAL IVP STA (16:25)
[2023-09-23] MEDS: METOCLOPRAMIDE 5 MG/ML 2 ML VIAL IVP STA (16:25)
[2023-09-23] MEDS: DEXAMETHASONE SOD PHOSPHATE 10 MG/ML 1 ML VIAL IVP STA (16:26)
[2023-09-23 16:53] LABS: Basophils % (A) 0 %; Eosinophils % (A) 0 %; HCT 38.9 % (34.0-46.0); HGB 12.7 gm/dL (11.4-16.0); Lymphocytes # (A) 1.4 k/uL (1.0-4.8); Lymphocytes % (A) 33 %; MCHC 32.7 g/dL (31.0-37.0); MCV 91.7 fL (80.0-100.0); Mean Platelet Volume 7.6; Monocytes # (A) 0.2 k/uL (0-1.0); Monocytes % (A) 5 %; Neutrophils # (A) 2.5 k/uL (1.3-7.7); Neutrophils % (A) 60 %; Platelet Count 127 k/uL (150-450); RBC 4.24 m/uL (3.80-5.40); WBC 4.2 k/uL (3.8-10.6)
[2023-09-23 17:00] LABS: Partial Thromboplastin Time 25.9 sec (22.0-30.0); Prothrombin Time 10.5 sec (10.0-12.5)
[2023-09-23 17:09] LABS: Potassium 4.2 mmol/L (3.5-5.1)
[2023-09-23 17:10] LABS: ALT 19 U/L (4-34); AST 26 U/L (14-36); African American GFR (CKD) >90 (>60 ml/min/1.73 sqM); Albumin 3.9 g/dL (3.5-5.0); Alkaline Phosphatase 56 U/L (38-126); Anion Gap 5 mmol/L; Blood Urea Nitrogen 23 mg/dL (7-17); Calcium 9.1 mg/dL (8.4-10.2); Carbon Dioxide 29 mmol/L (22-30); Chloride 102 mmol/L (98-107); Creatine Kinase 66 U/L (30-135); Glucose 94 mg/dL (74-99); Non-African American GFR(CKD) >90 (>60 ml/min/1.73 sqM); Sodium 136 mmol/L (137-145); Total Bilirubin 0.4 mg/dL (0.2-1.3); Total Protein 6.4 g/dL (6.3-8.2)
--- NOTE | 2023-09-23 17:53 | ED ---
General Adult HPI - General Chief complaint: Neuro Symptoms/Deficit Stated complaint: Numbness L side of face down to arm Time Seen by Provider: 09/23/23 15:25 Source: patient Mode of arrival: ambulatory Limitations: no limitations - History of Present Illness Initial comments: 58-year-old female with past medical history of migraines who presents emergency department reporting left-sided facial numbness and left arm numbness. States that she woke up at 10:00 and feel well. Around 2:00 she noted that she was having difficulty swallowing with left-sided neck swelling and numbness and tingling. Denies any speech deficit but does admit to hoarseness of her voice. No loss of strength in her hand. Denies any numbness or tingling into her leg. No history of stroke. Admits that she does have a history of migraine headaches however this is not common for her. No other alleviating, precipitating modifying factors - Related Data Home Medications Medication Instructions Recorded Confirmed Amitriptyline HCl 50 mg PO HS 01/23/21 09/23/23 Potassium Chloride [Klor-Con 10 ER] 20 meq PO BID 01/23/21 09/23/23 hydroCHLOROthiazide [Hydrodiuril] 25 mg PO DAILY 01/23/21 09/23/23 Amoxic-Pot Clav 875-125Mg 1 tab PO Q12HR 09/23/23 09/23/23 [Augmentin 875-125] Butalb/APAP/Caff 50-325-40Mg 1 tab PO Q4H PRN 09/23/23 09/23/23 [Fioricet 50-325-40] Cholecalciferol (Vitamin D3) 1,250 mcg PO DAMON 09/23/23 09/23/23 [Vitamin D3 (1250 Mcg = 50,000 Iu)] Levothyroxine Sodium [Synthroid] 88 mcg PO DAILY 09/23/23 09/23/23 Magnesium Oxide [Mag-Ox] 400 mg PO HS 09/23/23 09/23/23 Omeprazole 40 mg PO DAILY 09/23/23 09/23/23 Ondansetron Odt [Zofran Odt] 8 mg PO BID PRN 09/23/23 09/23/23 Riboflavin (Vitamin B2) [Vitamin 100 mg PO DAILY 09/23/23 09/23/23 B-2] Rizatriptan Odt [Maxalt Crane Manager] 10 mg PO BID PRN 09/23/23 09/23/23 Tirzepatide [Mounjaro] 2.5 mg SQ WE 09/23/23 09/23/23 Venlafaxine HCl ER [Effexor Xr] 150 mg PO DAILY 09/23/23 09/23/23 Vyepti 1 dose IV Q90D 09/23/23 09/23/23 Allergies Allergy/AdvReac Type Severity Reaction Status Date / Time banana Allergy Itching Verified 09/23/23 18:27 cuevas pepper [green pepper] Allergy Itching Verified 09/23/23 18:27 grass pollen Allergy Itching Verified 09/23/23 18:27 kiwi Allergy Itching Verified 09/23/23 18:27 melon Allergy Anaphylaxis Verified 09/23/23 18:27 mold Allergy Itching Verified 09/23/23 18:27 onion Allergy Verified 09/23/23 18:44 orange juice [[place]] Allergy Itching Verified 09/23/23 18:27 pear Allergy Itching Verified 09/23/23 18:27 pollen extracts Allergy Itching Verified 09/23/23 18:27 ragweed pollen Allergy Itching Verified 09/23/23 18:27 Sulfa (Sulfonamide Allergy Rash/Hives Verified 09/23/23 18:27 Antibiotics) Review of Systems ROS Statement: Those systems with pertinent positive or pertinent negative responses have been documented in the HPI. ROS Other: All systems not noted in ROS Statement are negative. Past Medical History Past Medical History: Diabetes Mellitus, Fibromyalgia, Thyroid Disorder Additional Past Medical History / Comment(s): Migraines, low potassium, was having chest pain & saw Dr. Carter-States she has an Atrial Septal Defect and he will check her in 3 years. Newly diagnosed with a stomach ulcer.hypokalemia History of Any Multi-Drug Resistant Organisms: None Reported Past Surgical History: Adenoidectomy, Cholecystectomy, Hysterectomy, Tonsillectomy Additional Past Surgical History / Comment(s): sinus surgery 2008, paty. oopherectomy Past Anesthesia/Blood Transfusion Reactions: No Reported Reaction Past Psychological History: Depression, PTSD Smoking Status: Never smoker Past Alcohol Use History: Occasional Past Drug Use History: None Reported - Past Family History Father Additional Family Medical History / Comment(s): AAA with blood clots, vasculitis, emphysema Mother Family Medical History: Deep Vein Thrombosis (DVT), Hypertension, Myocardial Infarction ([place]), Osteoarthritis (OA), Thyroid Disorder Additional Family Medical History / Comment(s): sjorgren's General Exam Limitations: no limitations General appearance: alert, in no apparent distress Head exam: Present: atraumatic, normocephalic, normal inspection Eye exam: Present: normal appearance, PERRL, EOMI. Absent: scleral icterus, conjunctival injection, periorbital swelling ENT exam: Present: normal exam, mucous membranes moist Neck exam: Present: normal inspection, other (No neck swelling appreciated). Absent: tenderness, meningismus, lymphadenopathy Respiratory exam: Present: normal lung sounds bilaterally. Absent: respiratory distress, wheezes, rales, rhonchi, stridor Cardiovascular Exam: Present: regular rate, normal rhythm, normal heart sounds. Absent: systolic murmur, diastolic murmur, rubs, gallop, clicks GI/Abdominal exam: Present: soft, normal bowel sounds. Absent: distended, tenderness, guarding, rebound, rigid Extremities exam: Present: full ROM, normal capillary refill, other (Patient reports to decrease sensation in the left upper extremity). Absent: tenderness, pedal edema, joint swelling, calf tenderness Back exam: Present: normal inspection Neurological exam: Present: alert, oriented X3, CN II-XII intact, other (Patient reports to decrease sensation over the left lower face) Psychiatric exam: Present: normal affect, normal mood Skin exam: Present: warm, dry, intact, normal color. Absent: rash Course Vital Signs 09/23/23 09/23/23 09/23/23 15:22 15:45 17:12 Temperature 98.7 F Pulse Rate 83 80 56 L Respiratory 16 18 18 Rate Blood Pressure 93/61 96/57 96/54 O2 Sat by Pulse 98 99 99 Oximetry 09/23/23 09/23/23 09/23/23 18:22 19:34 20:03 Temperature Pulse Rate 59 L 60 65 Respiratory 18 16 18 Rate Blood Pressure 102/67 101/65 105/67 O2 Sat by Pulse 100 96 96 Oximetry 09/23/23 09/23/23 21:44 22:54 Temperature Pulse Rate 70 61 Respiratory 16 18 Rate Blood Pressure 102/66 102/66 O2 Sat by Pulse 97 96 Oximetry Medical Decision Making - Medical Decision Making Was pt. sent in by a medical professional or institution (, TERRY, RADIAL DRILL PRESS OPERATOR FOR [employer]IC, urgent care, hospital, or group home...) When possible be specific @ -No Did you speak to anyone other than the patient for history (EMS, parent, family, police, friend...)? What history was obtained from this source @ -Spoke with the patient's mom for history Did you review nursing and triage notes (agree or disagree)? Why? @ -I reviewed and agree with nursing and triage notes Were old charts reviewed (outside hosp., previous admission, EMS record, old EKG, old radiological studies, urgent care reports/EKG's, group home records)? Report findings @ -No old charts were reviewed Differential Diagnosis (chest pain, altered mental status, abdominal pain women, abdominal pain men, vaginal bleeding, weakness, fever, dyspnea, syncope, hea dache, dizziness, GI bleed, back pain, seizure, CVA, palpatations, mental health, musculoskeletal)? @ -Differential CVA Ischemic stroke, hemorrhagic stroke, brain tumor, atypical migraine, Wernicke's encephalopathy, seizure, multiple sclerosis, meningitis, encephalitis, hypoglycemia, Guillain-Rosario, electrolytes disturbance, myasthenia gravis.... This is not meant to be an all-inclusive list EKG interpreted by me (3pts min.). @ -Yes and demonstrates sinus bradycardia with a rate of 56. CO interval 144. QRS 93. QTc of 385. No acute ST segment elevations or depressions X-rays interpreted by me (1pt min.). @ -Yes and demonstrates no acute process CT interpreted by me (1pt min.). @ -Yes and demonstrates no acute process U/S interpreted by me (1pt. min.). @ -None done What testing was considered but not performed or refused? (CT, X-rays, U/S, labs)? Why? @ -None What meds were considered but not given or refused? Why? @ -None Did you discuss the management of the patient with other professionals (professionals i.e. TERRY Justin, RADIAL DRILL PRESS OPERATOR [employer], lab, RT, psych nurse, social security benefits interviewer, mail handlers supervisor, teacher, search and rescue officer, caser)? Give summary @ -Awaiting callback from Dr. Ludn Was smoking cessation discussed for >3mins.? @ -No Was critical care preformed (if so, how long)? @ -No Were there social determinants of health that impacted care today? How? (Homelessness, low income, unemployed, alcoholism, drug addiction, transportation, low edu. Level, literacy, decrease access to med. care, penitentiary, rehab)? @ -No Was there de-escalation of care discussed even if they declined (Discuss DNR or withdrawal of care, Hospice)? DNR status @ -No What co-morbidities impacted this encounter? (DM, HTN, Smoking, COPD, CAD, Cancer, CVA, ARF, Chemo, Hep., AIDS, mental health diagnosis, sleep apnea, morbid obesity)? @ -migraines Was patient admitted / discharged? Hospital course, mention meds given and route, prescriptions, significant lab abnormalities, going to OR and other pertinent info. @ -Upon arrival patient was placed into room 25. Thorough history and physical exam was performed. Patient is reporting decrease sensation in her left face and left arm. Differential of complex migraine versus CVA. IV is established. Laboratory studies are conducted. Patient does go for CT as well as CT angiography. Results are discussed with the patient. She continues to have persistent symptoms. Recommended admission for evaluation by neurology. Dr. Lund is paged for admission. Patient remained in stable condition awaiting admission Undiagnosed new problem with uncertain prognosis? @ -Yes Drug Therapy requiring intensive monitoring for toxicity (Heparin, Nitro, Insulin, Cardizem)? @ -No Were any procedures done? @ -No Diagnosis/symptom? @ -Acute left facial paresthesias, acute left upper extremity paresthesias, cephalgia, possible CVA Acute, or Chronic, or Acute on Chronic? @ -Acute Uncomplicated (without systemic symptoms) or Complicated (systemic symptoms)? @ -Complicated Side effects of treatment? @ -No Exacerbation, Progression, or Severe Exacerbation? @ -No Poses a threat to life or bodily function? How? (Chest pain, [place], [place], pneumonia, PE, COPD, DKA, ARF, appy, cholecystitis, CVA, Diverticulitis, Homicidal, Suicidal, threat to staff... and all critical care pts) @ -No - Lab Data Result diagrams: 09/23/23 16:23 09/23/23 16:23 Lab Results 09/23/23 09/23/23 09/23/23 Range/Units 16:23 16:23 16:23 WBC 4.2 (3.8-10.6) k/uL RBC 4.24 (3.80-5.40) m/uL Hgb 12.7 (11.4-16.0) gm/dL Hct 38.9 (34.0-46.0) % MCV 91.7 (80.0-100.0) fL MCH 30.0 (25.0-35.0) pg MCHC 32.7 (31.0-37.0) g/dL RDW 13.0 (11.5-15.5) % Plt Count 127 L (150-450) k/uL MPV 7.6 Neutrophils % 60 % Lymphocytes % 33 % Monocytes % 5 % Eosinophils % 0 % Basophils % 0 % Neutrophils # 2.5 (1.3-7.7) k/uL Lymphocytes # 1.4 (1.0-4.8) k/uL Monocytes # 0.2 (0-1.0) k/uL Eosinophils # 0.0 (0-0.7) k/uL Basophils # 0.0 (0-0.2) k/uL PT 10.5 (10.0-12.5) sec INR 1.0 (<1.2) APTT 25.9 (22.0-30.0) sec Sodium 136 L (137-145) mmol/L Potassium 4.2 (3.5-5.1) mmol/L Chloride 102 (98-107) mmol/L Carbon Dioxide 29 (22-30) mmol/L Anion Gap 5 mmol/L BUN 23 H (7-17) mg/dL Creatinine 0.70 (0.52-1.04) mg/dL Est GFR (CKD-EPI)AfAm >90 (>60 ml/min/1.73 sqM) Est GFR (CKD-EPI)NonAf >90 (>60 ml/min/1.73 sqM) Glucose 94 (74-99) mg/dL Calcium 9.1 (8.4-10.2) mg/dL Total Bilirubin 0.4 (0.2-1.3) mg/dL AST 26 (14-36) U/L ALT 19 (4-34) U/L Alkaline Phosphatase 56 (38-126) U/L Creatine Kinase 66 (30-135) U/L Troponin I (0.000-0.034) ng/mL Total Protein 6.4 (6.3-8.2) g/dL Albumin 3.9 (3.5-5.0) g/dL 09/23/23 Range/Units 16:23 WBC (3.8-10.6) k/uL RBC (3.80-5.40) m/uL Hgb (11.4-16.0) gm/dL Hct (34.0-46.0) % MCV (80.0-100.0) fL MCH (25.0-35.0) pg MCHC (31.0-37.0) g/dL RDW (11.5-15.5) % Plt Count (150-450) k/uL MPV Neutrophils % % Lymphocytes % % Monocytes % % Eosinophils % % Basophils % % Neutrophils # (1.3-7.7) k/uL Lymphocytes # (1.0-4.8) k/uL Monocytes # (0-1.0) k/uL Eosinophils # (0-0.7) k/uL Basophils # (0-0.2) k/uL PT (10.0-12.5) sec INR (<1.2) APTT (22.0-30.0) sec Sodium (137-145) mmol/L Potassium (3.5-5.1) mmol/L Chloride (98-107) mmol/L Carbon Dioxide (22-30) mmol/L Anion Gap mmol/L BUN (7-17) mg/dL Creatinine (0.52-1.04) mg/dL Est GFR (CKD-EPI)AfAm (>60 ml/min/1.73 sqM) Est GFR (CKD-EPI)NonAf (>60 ml/min/1.73 sqM) Glucose (74-99) mg/dL Calcium (8.4-10.2) mg/dL Total Bilirubin (0.2-1.3) mg/dL AST (14-36) U/L ALT (4-34) U/L Alkaline Phosphatase (38-126) U/L Creatine Kinase (30-135) U/L Troponin I <0.012 (0.000-0.034) ng/mL Total Protein (6.3-8.2) g/dL Albumin (3.5-5.0) g/dL Disposition Clinical Impression: Facial paresthesia, Migraine Disposition: ADMITTED IP TO THIS [facility] Condition: Stable Is patient prescribed a controlled substance at d/c from ED?: No Time of Disposition: 18:59 Decision to Admit Reason: Admit from EC Decision Date: 09/23/23 Decision Time: 18:59
--- NOTE | 2023-09-23 18:01 | XR ---
EXAMINATION: XR chest 2V: 09/23/2023 5:46 PM CLINICAL INDICATION: altered mental status TECHNIQUE: Departmental protocol COMPARISON: None FINDINGS: The lungs are clear. The pleural spaces are negative. The cardiac silhouette is not enlarged. The remainder of the mediastinal silhouette is unremarkable. The skeletal structures and soft tissues are negative for acute findings. IMPRESSION: No acute radiographic process.
--- NOTE | 2023-09-23 18:06 | CT ---
EXAMINATION TYPE: CT brain wo con DATE OF EXAM: 09/23/2023 HISTORY: Neuro deficit, acute, stroke suspected CT DLP: Combined DLP of 1504.5 mGycm. Automated Exposure Control for Dose Reduction was Utilized. TECHNIQUE: CT scan of the head is performed without contrast. COMPARISON: CT 04/28/2019 FINDINGS: There is no acute intracranial hemorrhage or midline shift identified. There is diffuse magaly tricular and sulcal prominence consistent with diffuse age-related cerebral atrophy. There is low-att enuation in the periventricular white matter consistent with chronic small vessel ischemic change. T he globes are intact and the visualized sinuses are clear. IMPRESSION: No acute process.
--- NOTE | 2023-09-23 18:19 | CT ---
EXAMINATION TYPE: CT angio head neck with contrast and with 3-D rendering at an independent workstati on DATE OF EXAM: 09/23/2023 HISTORY: Neuro deficit, acute, stroke suspected COMPARISON: CT Head 09/23/2023 at 5:[address] DLP: Combined DLP of 1504.5 mGycm. Automated Exposure Control for Dose Reduction was Utilized. TECHNIQUE: CTA scan of the head and neck is performed with IV Contrast, patient injected with 65 cc mL of Isovue 370, axial images are obtained, coronal and sagittal reformatted images are reviewed. 3D reconstructed images are created on an independent workstation and reviewed. FINDINGS: CTA neck: The bilateral carotid systems are widely patent, and normal in appearance. Similarly, the b ilateral vertebral artery systems are widely patent, and normal in appearance. There are no incidenta l nonvascular neck findings. CTA head: The anterior and posterior arterial circulations are widely patent, and normal appearance. No incidental nonvascular head findings. IMPRESSION: No significant abnormality is seen. NASCET criteria was used in interpretation of this exam?
[2023-09-23] MEDS: KETOROLAC 15 MG/ML 1 ML VIAL IVP STA (18:36)
[2023-09-23] MEDS ORDERED: NALOXONE 0.4 MG/ML 1 ML VIAL IV PRN (19:00)
[2023-09-23] MEDS ORDERED: ONDANSETRON ODT 8 MG TAB.RAPDIS PO PRN (23:23)
[2023-09-23] MEDS: SUMAtriptan succinate 50 MG TAB PO PRN (23:50)
[2023-09-23] MEDS: AMITRIPTYLINE HCL 50 MG TAB PO SCH (23:51)
[2023-09-23] MEDS: AMOXIC-POT CLAV 875-125MG 1 EACH TAB PO SCH (23:52)
[2023-09-23] MEDS: MAGNESIUM OXIDE 400 MG TAB PO SCH (23:52)
[2023-09-23] MEDS: POTASSIUM CHLORIDE ER 20 MEQ TAB.ER PO SCH (23:52)
[2023-09-24] MEDS: BUTALB/APAP/CAFF 50-325-40MG TAB PO PRN (02:57)
[2023-09-24] MEDS: LEVOTHYROXINE 88 MCG TAB PO SCH (06:50)
[2023-09-24 08:12] LABS: Basophils % (A) 0 %; Eosinophils % (A) 0 %; HGB 13.9 gm/dL (11.4-16.0); Lymphocytes # (A) 1.7 k/uL (1.0-4.8); Lymphocytes % (A) 21 %; MCH 30.3 pg (25.0-35.0); MCV 91.6 fL (80.0-100.0); Mean Platelet Volume 7.9; Monocytes # (A) 0.3 k/uL (0-1.0); Monocytes % (A) 4 %; Neutrophils % (A) 74 %; Platelet Count 168 k/uL (150-450); RBC 4.59 m/uL (3.80-5.40); RDW 13.2 % (11.5-15.5); WBC 8.1 k/uL (3.8-10.6)
[2023-09-24] MEDS ORDERED: NON FORMULARY DRUG (Riboflavin (Vitamin B2) [Vitamin B-2] 100 MG Tablet) PO SCH (09:00)
[2023-09-24] MEDS: VENLAFAXINE HCL ER 150 MG CAP PO SCH (10:21)
[2023-09-24] MEDS: PANTOPRAZOLE 40 MG TABLET PO SCH (10:21)
[2023-09-24] MEDS: hydroCHLOROthiazide 25 MG TAB PO SCH (10:21)
[2023-09-24 12:07] LABS: African American GFR (CKD) >90 (>60 ml/min/1.73 sqM); Anion Gap 7 mmol/L; Blood Urea Nitrogen 21 mg/dL (7-17); Calcium 9.4 mg/dL (8.4-10.2); Carbon Dioxide 31 mmol/L (22-30); Chloride 101 mmol/L (98-107); Glucose 87 mg/dL (74-99); Non-African American GFR(CKD) >90 (>60 ml/min/1.73 sqM); Potassium 3.8 mmol/L (3.5-5.1); Sodium 139 mmol/L (137-145)
[2023-09-24] MEDS ORDERED: ASPIRIN 81 MG PO SCH (13:30)
[2023-09-24] MEDS: ASPIRIN 81 MG PO STA (13:42)
[2023-09-24] MEDS: CYANOCOBALAMIN 1,000 MCG/ML 1 ML VIAL IM ONE (13:42)
--- NOTE | 2023-09-24 14:32 | P.HPIM ---
History of Present Illness H&P Date: 09/24/23 Chief Complaint: Headache, left lower face numbness History and Physical and Discharge Summary: This is a 58-year-old female with past medical history significant for severe migraines, follows with the neurologist out of [place] and receives IV in fusions every 3 months, diabetes mellitus, hypothyroidism, nicotine dependence, presented to the ER with ongoing migraine accompanied by left angle of jaw to lip numbness. denied slurred speech, denied weakness or numbness. Patient attributes symptoms to seasonal allergies. Denies chest pain, palpitations or shortness of breath. Chest x-ray reported nonacute. Brain CT reported no acute process. CT angio head and neck reported no significant abnormality seen.On presentation vitals and labs stable, trop negative x3. EKG NSB. Neurology consult in place. Review of Systems Constitutional: Denied any fatigue denied any fever. ENT: As mentioned in HPI, positive headache Cardio vascular: denied any chest pain, palpitations Gastrointestinal denied any nausea vomiting Pulmonary: Denied any shortness of breath cough Neurologic: As mentioned in HPI ROS Statement: Those systems with pertinent positive or pertinent negative responses have been documented in the HPI. ROS Other: All systems not noted in ROS Statement are negative. Past Medical History Past Medical History: Diabetes Mellitus, Fibromyalgia, Thyroid Disorder Additional Past Medical History / Comment(s): Migraines, low potassium, was having chest pain & saw Dr. Carter-States she has an Atrial Septal Defect and he will check her in 3 years. Newly diagnosed with a stomach ulcer.hypokalemia History of Any Multi-Drug Resistant Organisms: None Reported Past Surgical History: Adenoidectomy, Cholecystectomy, Hysterectomy, Tonsillectomy Additional Past Surgical History / Comment(s): sinus surgery 2007, paty. oopherectomy Past Anesthesia/Blood Transfusion Reactions: No Reported Reaction Past Psychological History: Depression, PTSD Additional Psychological History / Comment(s): due to son passing away Smoking Status: Never smoker Past Alcohol Use History: Occasional Past Drug Use History: None Reported Additional Drug Use History / Comment(s): CBD - Past Family History Father Additional Family Medical History / Comment(s): AAA with blood clots, vasculitis, emphysema Mother Family Medical History: Deep Vein Thrombosis (DVT), Hypertension, Myocardial Infarction ([place]), Osteoarthritis (OA), Thyroid Disorder Additional Family Medical History / Comment(s): sjorgren's Medications and Allergies Home Medications Medication Instructions Recorded Confirmed Type Amitriptyline HCl 50 mg PO HS 01/23/21 09/23/23 History Potassium Chloride [Klor-Con 10 ER] 20 meq PO BID 01/23/21 09/23/23 History hydroCHLOROthiazide [Hydrodiuril] 25 mg PO DAILY 01/23/21 09/23/23 History Amoxic-Pot Clav 875-125Mg 1 tab PO Q12HR 09/23/23 09/23/23 History [Augmentin 875-125] Butalb/APAP/Caff 50-325-40Mg 1 tab PO Q4H PRN 09/23/23 09/23/23 History [Fioricet 50-325-40] Cholecalciferol (Vitamin D3) 1,250 mcg PO DAMON 09/23/23 09/23/23 History [Vitamin D3 (1250 Mcg = 50,000 Iu)] Levothyroxine Sodium [Synthroid] 88 mcg PO DAILY 09/23/23 09/23/23 History Magnesium Oxide [Mag-Ox] 400 mg PO HS 09/23/23 09/23/23 History Omeprazole 40 mg PO DAILY 09/23/23 09/23/23 History Ondansetron Odt [Zofran ODT] 8 mg PO BID PRN 09/23/23 09/23/23 History Riboflavin (Vitamin B2) [Vitamin 100 mg PO DAILY 09/23/23 09/23/23 History B-2] Rizatriptan Odt [Maxalt BAR MACHINE OPERATOR] 10 mg PO BID PRN 09/23/23 09/23/23 History Tirzepatide [Mounjaro] 2.5 mg SQ WE 09/23/23 09/23/23 History Venlafaxine HCl ER [Effexor XR] 150 mg PO DAILY 09/23/23 09/23/23 History Vyepti 1 dose IV Q90D 09/23/23 09/23/23 History Aspirin EC [Ecotrin Low Dose] 81 mg PO DAILY #30 tab 09/24/23 Rx Allergies Allergy/AdvReac Type Severity Reaction Status Date / Time banana Allergy Itching Verified 09/23/23 18:27 cuevas pepper [green pepper] Allergy Itching Verified 09/23/23 18:27 grass pollen Allergy Itching Verified 09/23/23 18:27 kiwi Allergy Itching Verified 09/23/23 18:27 melon Allergy Anaphylaxis Verified 09/23/23 18:27 mold Allergy Itching Verified 09/23/23 18:27 onion Allergy Verified 09/23/23 18:44 orange juice [[place]] Allergy Itching Verified 09/23/23 18:27 pear Allergy Itching Verified 09/23/23 18:27 pollen extracts Allergy Itching Verified 09/23/23 18:27 ragweed pollen Allergy Itching Verified 09/23/23 18:27 Sulfa (Sulfonamide Allergy Rash/Hives Verified 09/23/23 18:27 Antibiotics) Physical Exam Vitals: Vital Signs Temp Pulse Pulse Resp BP BP Pulse Ox 09/24/23 08:31 97.7 F 73 16 98/61 99 09/24/23 06:39 60 18 111/71 100 09/24/23 02:59 75 16 112/75 98 09/24/23 01:37 16 09/24/23 01:03 55 L 12 106/69 96 09/23/23 23:56 70 17 100/65 97 09/23/23 22:54 61 18 102/66 96 09/23/23 21:44 70 16 102/66 97 09/23/23 20:03 65 18 105/67 96 09/23/23 19:34 60 16 101/65 96 09/23/23 18:22 59 L 18 102/67 100 09/23/23 17:12 56 L 18 96/54 99 09/23/23 15:45 80 18 96/57 99 09/23/23 15:22 98.7 F 83 16 93/61 98 Intake and Output 09/23/23 09/24/23 09/24/23 22:59 06:59 14:59 Other: Weight 70.307 kg 70.307 kg General: well nourished, well developed, NAD. Vitals reviewed Eyes: PERRL, EOMI, conjunctiva normal, lymph nodes swollen HENT: normocephalic, mucus membranes moist Neck: supple, no JVD Lungs: normal respiratory effort, no wheezes or rales CV: Regular rate and rhythm, no murmur. Peripheral pulses 2+ Abdomen: soft, nondistended, no organomegaly Lymph: no cervical or axillary LAD Skin: warm and dry. Neuro: A&Ox3, normal mood and affect Results CBC & Chem 7: 09/24/23 07:36 09/24/23 07:36 Labs: Abnormal Lab Results - Last 24 Hours (Table) 09/23/23 09/23/23 09/24/23 Range/Units 16:23 16:23 07:36 Plt Count 127 L (150-450) k/uL Sodium 136 L (137-145) mmol/L Carbon Dioxide 31 H (22-30) mmol/L BUN 23 H 21 H (7-17) mg/dL Thrombosis Risk Factor Assmnt - Choose All That Apply Each Factor Represents 1 point: Age 41-60 years Thrombosis Risk Factor Assessment Total Risk Factor Score: 1 Thrombosis Risk Factor Assessment Level: Low Risk Assessment and Plan Assessment: Complex migraine, accompanied by numbness of left angle of jaw to lips, in a patient with history of severe migraines. Neurology following. Possible seasonal allergies, lymph nodes swollen Plan: Continue on current medication regimen ,monitoring and symptomatic treatment. Evaluated by neurology with workup in progress. Patient will be discharged home today in a stable condition with guarded prognosis pending final DC recommendations and clearance per neurology. Discharge Medication List Amitriptyline HCl 50 mg PO HS 01/23/21 [History] Potassium Chloride [Klor-Con 10 ER] 20 meq PO BID 01/23/21 [History] hydroCHLOROthiazide [Hydrodiuril] 25 mg PO DAILY 01/23/21 [History] Amoxic-Pot Clav 875-125Mg [Augmentin 875-125] 1 tab PO Q12HR 09/23/23 [History] Butalb/APAP/Caff 50-325-40Mg [Fioricet 50-325-40] 1 tab PO Q4H PRN 09/23/23 [History] Cholecalciferol (Vitamin D3) [Vitamin D3 (1250 Mcg = 50,000 Iu)] 1,250 mcg PO DAMON 09/23/23 [History] Levothyroxine Sodium [Synthroid] 88 mcg PO DAILY 09/23/23 [History] Magnesium Oxide [Mag-Ox] 400 mg PO HS 09/23/23 [History] Omeprazole 40 mg PO DAILY 09/23/23 [History] Ondansetron Odt [Zofran ODT] 8 mg PO BID PRN 09/23/23 [History] Riboflavin (Vitamin B2) [Vitamin B-2] 100 mg PO DAILY 09/23/23 [History] Rizatriptan Odt [Maxalt BAR MACHINE OPERATOR] 10 mg PO BID PRN 09/23/23 [History] Tirzepatide [Mounjaro] 2.5 mg SQ WE 09/23/23 [History] Venlafaxine HCl ER [Effexor XR] 150 mg PO DAILY 09/23/23 [History] Vyepti 1 dose IV Q90D 09/23/23 [History] Aspirin EC [Ecotrin Low Dose] 81 mg PO DAILY #30 tab 09/24/23 [Rx] B12 sublingual daily as per neurology. The impression and plan of care has been dictated as directed. : I performed a history and examination of this patient, discussed the same with the dictator. I agree with the dictator's note ,documented as a scribe. Any additional findings or plans will be noted.
[2023-09-24] MEDS: LORATADINE 10 MG TAB PO SCH (15:57)
--- NOTE | 2023-09-24 21:37 | CA ---
Transthoracic Echo Report Name: Jeancarlos Sol Age: 58 Gender: F : 1965 Exam Date: 09/24/2023 16:26 Exam Location: [facility] Ht (in): 66 Wt (lb): 155 Ordering Physician: Tunde Christine MD Attending/Referring Phys: Dish Technician Annamaria Sanchez RDCS Procedure CPT: Indications: tia Cardiac Hx: Technical Quality: Good Contrast 1: Total Dose (mL): Contrast 2: Total Dose (mL): MEASUREMENTS (Male / Female) Normal Values 2D ECHO LV Diastolic Diameter PLAX 4.3 cm 4.2 - 5.9 / 3.9 - 5.3 cm LV Systolic Diameter PLAX 3.2 cm IVS Diastolic Thickness 0.8 cm 0.6 - 1.0 / 0.6 - 0.9 cm LVPW Diastolic Thickness 0.8 cm 0.6 - 1.0 / 0.6 - 0.9 cm LV Relative Wall Thickness 0.4 RV Internal Dim ED PLAX 3.4 cm LA Systolic Diameter LX 3.1 cm 3.0 - 4.0 / 2.7 - 3.8 cm LA Volume 39.2 cm??? 18 - 58 / 22 - 52 cm??? LA Volume Index 21.5 cm???/m??? 16 - 28 cm???/m??? M-MODE Aortic Root Diameter MM 3.1 cm DOPPLER AV Peak Velocity 134.4 cm/s AV Peak Gradient 7.2 mmHg MV Area PHT 3.2 cm??? Mitral E Point Velocity 103.1 cm/s Mitral A Point Velocity 66.9 cm/s Mitral E to A Ratio 1.5 MV Deceleration Time 238.9 ms LV E' Lateral Velocity 16.1 cm/s Mitral E to LV E' Lateral Ratio 6.4 LV E' Septal Velocity 12.3 cm/s Mitral E to LV E' Septal Ratio 8.4 TR Peak Velocity 198.1 cm/s TR Peak Gradient 15.7 mmHg Right Ventricular Systolic Press 20.5 mmHg FINDINGS Left Ventricle Left ventricular ejection fraction is estimated at 55-60 %. Left ventricular cavity size normal. Left ventricular wall thickness normal. Normal left ventricular wall motion. Right Ventricle Normal right ventricular size and function. Right Atrium Normal right atrial size. Negative agitated saline bubble study for right to left shunt. Left Atrium Normal left atrial size. Mitral Valve Structurally normal mitral valve. Mild mitral regurgitation. Aortic Valve Trileaflet aortic valve. No aortic valve stenosis or regurgitation. Tricuspid Valve Structurally normal tricuspid valve. Mild tricuspid regurgitation. Pulmonic Valve Structurally normal pulmonic valve. No pulmonic regurgitation. Pericardium No pericardial effusion. Aorta Normal size aortic root and proximal ascending aorta. CONCLUSIONS Left ventricular ejection fraction is estimated at 55-60 %. Normal left ventricular wall motion. Normal right ventricular size and function. No significant valvular dysfunction Previewed by: Dr Cj Jaosn (Electronically Signed) Final Date: 24 September 2023 21:36
[2023-09-25 08:12] VITALS: BP 90/53; PULSE 57; RESP 16; TEMP 97.7
[2023-09-25] MEDS: ASPIRIN 81 MG PO SCH (08:51)
--- NOTE | 2023-09-25 10:01 | MR ---
MRI brain without contrast. HISTORY: TIA/stroke COMPARISON: None. TECHNIQUE: Multiecho multiplanar images the brain were obtained without contrast. FINDINGS: On the T1-weighted sagittal images, the midline structures including the craniovertebral junction rel ationships are normal. The ventricles, basal cisterns and sulci over the convexities are within normal limits and there is n o mass effect or shift of the midline structures. There are few small areas of abnormal increased signal intensity in the white matter of both cerebral hemispheres. These are nonspecific findings and likely represent chronic ischemic change. Based on the diffusion-weighted images, there is no diffusion restriction or acute ischemic event. The posterior fossa including the brainstem, fourth ventricle and cerebellar pontine angles appear no rmal. The intraorbital contents appear normal and symmetric. Paranasal sinuses are well aerated. There is m oderate fluid in the left mastoid air cells. IMPRESSION: 1. No mass, mass effect or acute ischemic event. 2. Few nonspecific white matter changes most likely indicating chronic ischemic white matter disease. 3. Moderate fluid in the left mastoid air cells.
--- NOTE | 2023-09-25 11:07 | P.CNNES ---
History of Present Illness Consult date: 09/24/23 Requesting physician: Estefania Matthews Reason for Consult: left sided facial paresthesias, cephalgia History of Present Illness: Patient is a 58-year-old ambidextrous female, with longstanding history of migraines "all her life", came to the hospital yesterday at 3:17 PM for left- sided paresthesias. Yesterday morning she woke up, not feeling right. She got a headache. She laid down back and placed "neck kd", which is a mild warmth massage to the neck. She slept and when she woke up, she felt slightly better, ate. At around 2 PM she went to take shower, was not feeling good. She noticed that her left side of the neck was bulging out, tender. She then developed numbness of the left side of the face and left hand with some pain. Also noticed some "vain" prominent in the left temporal region. She denied any slurred speech facial droop, or any focal weakness. Because of these neurological symptoms, she decided to come to the ER. Vital signs on arrival blood pressure 93/61, pulse rate 83 temperature 98.7. Blood test shows normal CBC PT PTT, normal CMP, troponin. Chest x-ray is normal, EKG shows sinus bradycardia. CT head showed no acute process. I personally reviewed CT head, agree with the findings. Patient denies hypertension. She has history of diabetes, but under control with Mounjaro. Patient has history of hyperlipidemia but takes Lipitor only about once a week. Patient denies any tobacco use, drinks alcohol occasionally. Patient has strong family history of aneurysms, multiple family members of it. Patient has history of migraines since she was age 2. She used to have it every day then came down to 4-5 times per day. In July 2023 she was started on Vyepti, which is IV infusion every 90 days, and her migraines have much improved. Now she gets migraines about once a week. She also takes vitamin B2 and magnesium. Patient states her diabetes is well-controlled, as her last A1c was about 5.3 about a month ago. She has previously tried Ozempic, which produced significant malnutrition because she could not eat. She has history of some disc herniation in the neck for which she sees chiropractor. At present she takes rizatriptan, Fioricet and Zofran as needed for migraines. Also on amitriptyline 50 mg at bedtime, omeprazole, vitamin D, Effexor, levothyroxine. Review of Systems Constitutional: Reports chills, Reports weight loss, Denies fever Eyes: bilateral blurred vision (yesterday, not today), denies pain, denies photophobia Ears: deny: decreased hearing, ear discharge Ears, nose, mouth and throat: Reports headache, Denies sore throat, Denies vertigo Cardiovascular: Denies chest pain, Denies lightheadedness, Denies shortness of breath Respiratory: Denies cough Gastrointestinal: Denies abdominal pain, Denies diarrhea, Denies nausea, Denies vomiting Genitourinary: Denies dysuria, Denies mixed incontinence Musculoskeletal: Reports low back pain, Reports neck pain Integumentary: Denies pruritus, Denies rash Neurological: Reports as per HPI Psychiatric: Denies anxiety, Denies depression Endocrine: Reports fatigue, Reports weight change Past Medical History Past Medical History: Diabetes Mellitus, Fibromyalgia, Thyroid Disorder Additional Past Medical History / Comment(s): Migraines, low potassium, was having chest pain & saw Dr. Carter-States she has an Atrial Septal Defect and he will check her in 3 years. Newly diagnosed with a stomach ulcer.hypokalemia History of Any Multi-Drug Resistant Organisms: None Reported Past Surgical History: Adenoidectomy, Cholecystectomy, Hysterectomy, Tonsillectomy Additional Past Surgical History / Comment(s): sinus surgery 2007, paty. oopherectomy Past Anesthesia/Blood Transfusion Reactions: No Reported Reaction Past Psychological History: Depression, PTSD Additional Psychological History / Comment(s): due to son passing away Smoking Status: Never smoker Past Alcohol Use History: Occasional Past Drug Use History: None Reported Additional Drug Use History / Comment(s): CBD - Past Family History Father Additional Family Medical History / Comment(s): AAA with blood clots, vasculitis, emphysema Mother Family Medical History: Deep Vein Thrombosis (DVT), Hypertension, Myocardial Infarction ([place]), Osteoarthritis (OA), Thyroid Disorder Additional Family Medical History / Comment(s): sjorgren's Medications and Allergies Home Medications Medication Instructions Recorded Confirmed Type Amitriptyline HCl 50 mg PO HS 01/23/21 09/23/23 History Potassium Chloride [Klor-Con 10 ER] 20 meq PO BID 01/23/21 09/23/23 History hydroCHLOROthiazide [Hydrodiuril] 25 mg PO DAILY 01/23/21 09/23/23 History Amoxic-Pot Clav 875-125Mg 1 tab PO Q12HR 09/23/23 09/23/23 History [Augmentin 875-125] Butalb/APAP/Caff 50-325-40Mg 1 tab PO Q4H PRN 09/23/23 09/23/23 History [Fioricet 50-325-40] Cholecalciferol (Vitamin D3) 1,250 mcg PO DAMON 09/23/23 09/23/23 History [Vitamin D3 (1250 Mcg = 50,000 Iu)] Levothyroxine Sodium [Synthroid] 88 mcg PO DAILY 09/23/23 09/23/23 History Magnesium Oxide [Mag-Ox] 400 mg PO HS 09/23/23 09/23/23 History Omeprazole 40 mg PO DAILY 09/23/23 09/23/23 History Ondansetron Odt [Zofran ODT] 8 mg PO BID PRN 09/23/23 09/23/23 History Riboflavin (Vitamin B2) [Vitamin 100 mg PO DAILY 09/23/23 09/23/23 History B-2] Rizatriptan Odt [Maxalt DIESEL SERVICE APPRENTICE] 10 mg PO BID PRN 09/23/23 09/23/23 History Tirzepatide [Mounjaro] 2.5 mg SQ WE 09/23/23 09/23/23 History Venlafaxine HCl ER [Effexor XR] 150 mg PO DAILY 09/23/23 09/23/23 History Vyepti 1 dose IV Q90D 09/23/23 09/23/23 History Aspirin EC [Ecotrin Low Dose] 81 mg PO DAILY #30 tab 09/24/23 Rx Allergies Allergy/AdvReac Type Severity Reaction Status Date / Time banana Allergy Itching Verified 09/23/23 18:27 cuevas pepper [green pepper] Allergy Itching Verified 09/23/23 18:27 grass pollen Allergy Itching Verified 09/23/23 18:27 kiwi Allergy Itching Verified 09/23/23 18:27 melon Allergy Anaphylaxis Verified 09/23/23 18:27 mold Allergy Itching Verified 09/23/23 18:27 onion Allergy Verified 09/23/23 18:44 orange juice [[place]] Allergy Itching Verified 09/23/23 18:27 pear Allergy Itching Verified 09/23/23 18:27 pollen extracts Allergy Itching Verified 09/23/23 18:27 ragweed pollen Allergy Itching Verified 09/23/23 18:27 Sulfa (Sulfonamide Allergy Rash/Hives Verified 09/23/23 18:27 Antibiotics) Physical Examination - Vital Signs Vital Signs: Vital Signs Temp Pulse Pulse Resp BP BP Pulse Ox 09/24/23 08:31 97.7 F 73 16 98/61 99 09/24/23 06:39 60 18 111/71 100 09/24/23 02:59 75 16 112/75 98 09/24/23 01:37 16 09/24/23 01:03 55 L 12 106/69 96 09/23/23 23:56 70 17 100/65 97 09/23/23 22:54 61 18 102/66 96 09/23/23 21:44 70 16 102/66 97 09/23/23 20:03 65 18 105/67 96 09/23/23 19:34 60 16 101/65 96 09/23/23 18:22 59 L 18 102/67 100 09/23/23 17:12 56 L 18 96/54 99 09/23/23 15:45 80 18 96/57 99 09/23/23 15:22 98.7 F 83 16 93/61 98 Intake and Output 09/23/23 09/24/23 09/24/23 22:59 06:59 14:59 Other: Weight 70.307 kg 70.307 kg Patient is a late middle aged female very pleasant, in no acute distress. Patient is alert awake oriented to time place and person. Speech and language functions are normal. Patient can name and repeat very well. No aphasia or dysarthria. Attention, concentration and fund of knowledge is adequate. On cranial nerve examination, pupils are equal, round and reacting to light, visual carr are full on confrontation, with no neglect on double simultaneous stimulation. Extraocular muscles are intact with no nystagmus. Face is symmetric, tongue protrudes to the midline. Palatal elevation and sensation normal, hearing and shoulder shrug normal, facial sensation normal. On muscle strength testing, there is no pronator drift and the strength is normal in arms and legs distally and proximally. Deep tendon reflexes are symmetric and plantars downgoing bilaterally. Sensory to touch is equal with no neglect on double simultaneous stimulation. Cerebellar function showed no ataxia for [id number] testing. No dysdiadochokinesia. No ataxia for [id number] testing on either side. Tone and bulk of muscles normal. Gait deferred.. On general examination, there is no carotid bruit or murmur, S1-S2 audible. Chest is clear on consultation. Abdomen is soft nontender. No organomegaly, bowel sounds present. Peripheral pulses are present. No peripheral edema. Results - Laboratory Findings CBC and BMP: 09/24/23 07:36 09/24/23 07:36 Abnormal Lab Findings: Abnormal Labs 09/23/23 09/23/23 09/24/23 16:23 16:23 07:36 Plt Count 127 L Sodium 136 L Carbon Dioxide 31 H BUN 23 H 21 H Assessment and Plan Assessment: * Acute left sided paresthesias involving the left facial region, and left hand. Unclear cause. Differential includes migraine aura, TIA, VS CVA. Her symptoms are still present. * Hyperlipidemia * Diabetes * History of monoclonal gammopathy/paraproteinemia. * Migraine headaches Plan: Patient has presented with left facial and left arm paresthesias, which are still present. Rule out CVA. Patient needs further workup. MRI of the brain without contrast, evaluate for acute CVA 2-D echo with bubble study to rule out PFO CTA head and neck showed: No significant abnormality. No aneurysm reported. Fasting a.m. lipid panel has been done recently by PCP. Recommend target LDL <70. Hemoglobin A1c 5.3 as per patient report about a month ago. Patient's last vitamin B12 level was borderline 290 on 06/16/2023. She is not on replacement. Patient was given vitamin B12 1000 mcg IM x 1 dose. She should continue taking vitamin B12. Patient's blood pressure is well-controlled. Patient was given aspirin 324 mg x 1 dose. She will be maintained on aspirin 81 mg daily, if okay with PCP. Patient has history of paraproteinemia. Patient follows up with hematology. Neuro checks every 4 hours. Telemetry monitoring rule out any arrhythmia Neurology will continue to follow. Thank you for the consult.
--- NOTE | 2023-09-25 14:39 | DS ---
DISCHARGE SUMMARY FINAL DIAGNOSES: 1. Complex migraine. 2. Numbness of the left ankle, jaw, and lips. 3. History of migraine. 4. History of seasonal allergies. 5. Multiple complex medical issues. DISCHARGE DISPOSITION: The patient was discharged stable with guarded prognosis. HISTORY OF PRESENT ILLNESS: 58-year-old woman with the past medical history of multiple medical problems including history of migraine. An MRI was done. Dr. Edwards, neurologist, evaluated the patient. Recommend the patient to be discharged. PHYSICAL EXAMINATION: VITAL SIGNS: Stable. CARDIOVASCULAR: S1, S2. ABDOMEN: Soft. NERVOUS SYSTEM: No focal deficits. DISCHARGE MEDICATIONS: Continue the same medications. Ecotrin 81 mg daily and follow up with Neurology and follow up with Dr. Martines as recommended. Once again, the patient will be discharged stable and guarded prognosis. MMODL / IJN: [id number] /
== END 2023-09-25 13:03 ==
LOC: EC 15:17 → 6NMEDSUR 19:01
PROVIDERS: ADMIT Family Medicine; ATTEND Family Medicine
DX: G43.109 Migraine with aura, not intractable, without status migrainosus (principal); E03.9 Hypothyroidism, unspecified; E11.9 Type 2 diabetes mellitus without complications; E78.5 Hyperlipidemia, unspecified; J30.2 Other seasonal allergic rhinitis; M50.20 Other cervical disc displacement, unspecified cervical region; D47.2 Monoclonal gammopathy; R13.10 Dysphagia, unspecified; R00.1 Bradycardia, unspecified; Z79.890 Hormone replacement therapy; Z79.85 Long-term (current) use of injectable non-insulin antidiabetic drugs; Z79.899 Other long term (current) drug therapy; Z88.2 Allergy status to sulfonamides; Z91.018 Allergy to other foods; Z91.048 Other nonmedicinal substance allergy status
CPT/HCPCS: 96372; 96361 ×2; 96374; 96375; 99285; 36415; 93005; 93306; 80053; 80048; 82550; 84484; 85025 ×2; 85610; 85730; 71046; 70496; 70450; 70498; 70551; G0378 ×3; J1200; J3420; J1100; J2765; J1885; Q9967

== ENCOUNTER → 2023-10-09 | Outpatient (CLI) | payer BC ==
--- NOTE | 2023-10-09 11:24 | MR ---
EXAMINATION TYPE: MR MRCP DATE OF EXAM: 10/09/2023 COMPARISON: Dated 06/23/2023 HISTORY: Hepatomegaly. Standard multiplanar, multisequence MRI departmental protocol Multiplanar, multisequence images of the were acquired without contrast. Diffusion weighted imaging w as performed. FINDINGS: Hepatomegaly with Scattered hepatic steatosis. Correlate with hepatic lab values. No intrahepatic mas s is identified. Postcholecystectomy changes seen. Postcholecystectomy prominence of the common bile duct at 1.1 cm. No abnormal intrahepatic biliary ductal dilatation seen. Pancreas is grossly unremark able. Simple cyst upper pole left kidney. Spleen and adrenal glands and abdominal aorta are unremarka ble. IMPRESSION: 1. Hepatomegaly with mild hepatic steatosis. 2. Postcholecystectomy changes.
== END | disposition home or self-care (01) ==
LOC: RADMRIMAIN 10:08
PROVIDERS: ATTEND Internal Medicine Hematology & Oncology
DX: K76.0 Fatty (change of) liver, not elsewhere classified (principal); R16.0 Hepatomegaly, not elsewhere classified; Z90.49 Acquired absence of other specified parts of digestive tract
CPT/HCPCS: 74181

== ENCOUNTER → 2024-01-26 | Outpatient (CLI) | payer BC ==
--- NOTE | 2024-01-26 15:43 | CT ---
EXAMINATION TYPE: CT brain wo con CT DLP: 1046.7 mGycm, Automated exposure control for dose reduction was used. DATE OF EXAM: 01/26/2024 3:38 PM COMPARISON: 09/23/2023. CLINICAL INDICATION:Female, 58 years old with history of S09.90XA UNSPECIFIED INJURY OF HEAD, INITIAL ENCOU,H53.8, Hit head x2wks ago, No LOC, bruising/swelling to forehead. Was on asprin at time of inj ury. Pt c/o dizziness, fatigue, blurred vision in rt eye. Occipital neck pain. TECHNIQUE: Brain: Axial CT images of the brain were obtained with coronal and sagittal reformats created and rev iewed. Contrast used: None. Oral contrast used: None. FINDINGS: Brain: Extra-axial spaces: No abnormal extra-axial fluid collections. Ventricular system: Within normal limits Cerebral parenchyma: No acute intraparenchymal hemorrhage or mass effect. The caballero-white junction is well differentiated. Cerebellum: Unremarkable. Mass effect: No evidence of midline shift. Intracranial vasculature: unremarkable Soft tissues: Normal. Calvarium/osseous structures: No depressed skull fracture. Paranasal sinuses and mastoid air cells: Mild scattered paranasal sinus disease. Visualized orbits: Orbital contents are intact. IMPRESSION: No acute intracranial process.
== END | disposition home or self-care (01) ==
LOC: RADCTMAIN 15:16
PROVIDERS: ATTEND Family Medicine
DX: S09.90XA Unspecified injury of head, initial encounter (principal); H53.8 Other visual disturbances; M54.2 Cervicalgia
CPT/HCPCS: 70450